=== PATIENT | female | born 1995 | race Caucasian/White ===

== ENCOUNTER 2017-10-26 00:32 | Emergency (ER) | payer BC ==
[2017-10-26] MEDS ORDERED: KETOROLAC TROMETHAMINE 60 MG/2 ML SDV ONE (00:59)
[2017-10-26] MEDS ORDERED: ONDANSETRON 4 MG TAB.RAPDIS ONE (01:10)
[2017-10-26] MEDS ORDERED: KETOROLAC TROMETHAMINE INJ/PF 30 MG/1 ML SDV IM ONE (01:14)
[2017-10-26] MEDS ORDERED: ONDANSETRON 4 MG TAB.RAPDIS PO ONE (01:14)
[2017-10-26] MEDS ORDERED: MORPHINE SULFATE 10 MG/ML INJ IV ONE (02:06)
--- NOTE | 2017-10-26 02:08 | ER Document Report ---
ED GI/ - General Chief Complaint: Flank Pain Stated Complaint: FLANK PAIN Time Seen by Provider: 10/26/17 01:59 Notes: Patient is a 22-year-old female comes emergency department for chief complaint of sharp pain radiating around to her left flank area and several episodes of vomiting. Symptoms started suddenly at 11 PM. She has never had kidney stones before. She denies trauma, fever, she is having normal bowel movements. She denies any daily medications or surgeries. LMP last month. Father at bedside. TRAVEL OUTSIDE OF THE [place] IN LAST 30 DAYS: No Past Medical History - General Information source: Patient - Social History Smoking Status: Never Smoker Frequency of alcohol use: None Drug Abuse: None Lives with: Family Family History: Reviewed & Not Pertinent - Medical History Medical History: Negative Surgical Hx: Negative - Immunizations Immunizations up to date: Yes Hx Diphtheria, Pertussis, Tetanus Vaccination: Yes Review of Systems - Review of Systems Constitutional: No symptoms reported EENT: No symptoms reported Cardiovascular: No symptoms reported Respiratory: No symptoms reported Gastrointestinal: See HPI Genitourinary: See HPI Female Genitourinary: No symptoms reported Musculoskeletal: No symptoms reported Skin: No symptoms reported Hematologic/Lymphatic: No symptoms reported Neurological/Psychological: No symptoms reported Physical Exam - Vital signs Vitals: Temp Pulse Resp BP Pulse Ox 97.5 F 91 20 101/79 96 10/26/17 00:59 10/26/17 00:59 10/26/17 00:59 10/26/17 00:59 10/26/17 00:59 Interpretation: Normal - General General appearance: Alert, Anxious In distress: Mild - HEENT Head: Normocephalic, Atraumatic Eyes: Normal Conjunctiva: Normal Extraocular movements intact: Yes Eyelashes: Normal Pupils: PERRL Nasal: Normal Mouth/Lips: Normal Mucous membranes: Normal Pharynx: Normal Neck: Normal - Respiratory Respiratory status: No respiratory distress Chest status: Nontender Breath sounds: Normal. No: Decreased air movement, Wheezing Chest palpation: Normal - Cardiovascular Rhythm: Regular. No: Tachycardia Heart sounds: Normal auscultation, S1 appreciated, S2 appreciated Murmur: No - Abdominal Inspection: Normal Distension: No distension Bowel sounds: Normal Tenderness: Tender - there is general non-specific left abdominal tenderness without guarding, remaining abdomen is nontender - Back Back: Tender - There is noted left CVA tenderness, right side is unremarkable. No: Vertebra tenderness - Extremities General upper extremity: Normal inspection, Nontender, Normal strength, Normal temperature General lower extremity: Normal inspection, Nontender, Normal strength, Normal temperature - Neurological Neuro grossly intact: Yes Cognition: Normal Orientation: AAOx4 [place] Coma Scale Eye Opening: Spontaneous [place] Coma Scale Verbal: Oriented [place] Coma Scale Motor: Obeys Commands Yandy Coma Scale Total: 15 Speech: Normal Motor strength normal: LUE, RUE, LLE, RLE Sensory: Normal - Psychological Associated symptoms: Anxious - Skin Skin Temperature: Warm Skin Moisture: Dry Skin Color: Normal Course - Re-evaluation Re-evalutation: Patient in obvious discomfort on initial evaluation, after Toradol, morphine, IV fluids, Zofran she is much improved. Patient did have recurrence of pain once, she was given additional medications but afterwards did not have recurrence and continued to be well-appearing. CBC shows marked leukocytosis at 22,000, this is nonspecific with patient being in pain and vomiting. Urinalysis shows a few white blood cells and trace leukocyte esterase without bacteria or nitrates. Culture placed. Renal functioning is unremarkable. Patient afebrile, normal vital signs. CAT scan showing 5 mm left distal ureteral stone with obstruction and hydronephrosis. No other acute abnormality Discussed with patient and father. Patient continues to be well-appearing, patient will be placed on symptom management, given urology referral, strict return precautions. Discussed this in detail with patient and father. They state understanding and agreement. - Vital Signs Vital signs: Temp Pulse Resp BP Pulse Ox 97.8 F 90 17 129/73 H 100 10/26/17 04:36 10/26/17 04:36 10/26/17 04:36 10/26/17 04:36 10/26/17 04:36 - Laboratory Result Diagrams: 10/26/17 01:55 10/26/17 01:55 Laboratory results interpreted by me: 10/26/17 10/26/17 10/26/17 01:55 01:55 02:30 WBC 22.9 H Seg Neuts % (Manual) 91 H Band Neutrophils % 1 L Lymphocytes % (Manual) 8 L Monocytes % (Manual) 0 L Abs Neuts (Manual) 21.1 H Abs Monocytes (Manual) 0.0 L Sodium 145.1 H BUN 21 H Glucose 153 H Albumin 5.1 H Urine Ketones TRACE H Urine Blood MODERATE H Ur Leukocyte Esterase SMALL H Discharge - Discharge Clinical Impression: Flank pain, Ureterolithiasis Vomiting Qualifiers: Vomiting type: unspecified Vomiting Intractability: non-intractable Nausea presence: with nausea Qualified Code(s): R11.2 - Nausea with vomiting, unspecified Condition: Stable Disposition: HOME, SELF-CARE Additional Instructions: You are passing a 5 mm kidney stone on the left side. Take the pain medication as prescribed, you can take your ibuprofen with it, take nausea medicine if needed, drink plenty of fluids. Call tomorrow to set up your follow-up with urology. Return to the emergency department if you worsen in anyway including uncontrolled vomiting, fever, worsening pain, or any other concerning symptoms. [facility] Urologist in [place], [place] Address: [address] [place] [id number] [facility] Medical clinic in [place], [place] Address: [facility] [address] [place] [id number] Prescriptions: Morphine Sulfate [Morphine Ir 15 Mg Tablet] 15 mg PO Q4HP PRN #20 tablet PRN Reason: Ondansetron [Zofran Odt 4 mg Tablet] 1 - 2 tab PO Q4H PRN #20 tab.rapdis PRN Reason: For Nausea/Vomiting Forms: Return to Work
[2017-10-26 02:41] LABS: ALANINE AMINOTRANSFERASE 24 U/L (9-52); ALBUMIN 5.1 g/dL (3.5-5.0); ALKALINE PHOSPHATASE 76 U/L (38-126); ANION GAP 17 (5-19); ASPARTATE AMINO TRANSFERASE 21 U/L (14-36); BILIRUBIN,DIRECT 0.3 mg/dL (0.0-0.4); BILIRUBIN,TOTAL 0.6 mg/dL (0.2-1.3); BLOOD UREA NITROGEN 21 mg/dL (7-20); CALCIUM 9.9 mg/dL (8.4-10.2); CARBON DIOXIDE 23 mmol/L (22-30); CHLORIDE 105 mmol/L (98-107); CREATININE RESULT 0.85 mg/dL (0.52-1.25); GLUCOSE 153 mg/dL (75-110); POTASSIUM 4.5 mmol/L (3.6-5.0); SODIUM 145.1 mmol/L (137-145); TOTAL PROTEIN 7.8 g/dL (6.3-8.2)
[2017-10-26 02:50] LABS: HEMATOCRIT 41.8 % (36.0-47.0); HEMOGLOBIN 14.3 g/dL (12.0-15.5); HGB HCT DIFFERENCE 1.1; MEAN CORPUSCULAR HEMOGLOBIN 29.1 pg (27.0-33.4); MEAN CORPUSCULAR HGB CONC 34.2 g/dL (32.0-36.0); MEAN CORPUSCULAR VOLUME 85 fl (80-97); RED BLOOD COUNT 4.91 10^6/uL (3.72-5.28); RED CELL DISTRIBUTION WIDTH 12.6 % (11.5-14.0); WHITE BLOOD COUNT 22.9 10^3/uL (4.0-10.5)
[2017-10-26 02:53] LABS: BAND NEUTROPHILS % (MANUAL) 1 % (3-5); BASOPHILS % (MANUAL) 0 % (0-2); EOSINOPHILS % (MANUAL) 0 % (0-6); LYMPHOCYTES % (MANUAL) 8 % (13-45); OVALOCYTES SLIGHT; POIKILOCYTOSIS SLIGHT; TEAR DROP CELLS SLIGHT; TOTAL CELLS COUNTED 100; TOXIC GRANULATION SLIGHT
[2017-10-26 03:06] LABS: APPEARANCE,URINE SLIGHTLY-CLOUDY; BILIRUBIN,URINE NEGATIVE (NEGATIVE); GLUCOSE, URINE NEGATIVE (NEGATIVE); KETONES,URINE TRACE mg/dL (NEGATIVE); LEUKOCYTE ESTERASE,URINE SMALL (NEGATIVE); NITRITE,URINE NEGATIVE (NEGATIVE); PROTEIN,URINE NEGATIVE (NEGATIVE); URINE SPECIFIC GRAVITY 1.029; UROBILINOGEN,URINE NEGATIVE mg/dL (<2.0)
[2017-10-26 03:13] LABS: BACTERIA,URINE TRACE /HPF
[2017-10-26] MEDS ORDERED: ONDANSETRON HCL INJ/PF 4 MG/2 ML SDV IV ONE (03:32)
[2017-10-26] MEDS ORDERED: HYDROMORPHONE HCL INJ/PF 2 MG/ML AMPULE IV ONE (03:32)
[2017-10-26] MEDS ORDERED: DIPHENHYDRAMINE HCL 50 MG/ML VIAL IV ONE (03:32)
--- NOTE | 2017-10-26 03:50 | RADIOLOGY REPORT (SQ) ---
EXAM DESCRIPTION: CT LTD RENAL STONE PROTOCOL ON CLINICAL HISTORY: 22 years Female, left flank pain, vomiting COMPARISON: None. TECHNIQUE: This exam was performed according to our departmental dose-optimization program, which includes automated exposure control, adjustment of the mA and/or kV according to patient size and/or use of iterative reconstruction technique. No contrast, coronal and sagittal reformat, 434 DLP, dose reduction. FINDINGS: 0.5 cm left distal ureteral stone within 2 cm of the left ureterovesicular junction with mild left hydronephrosis and moderate left hydroureter. IUD appears adequate. Unenhanced inferior chest and intra-abdominal/pelvic structures including the appendix and gallbladder appear unremarkable. Lymphatics and vasculature appear within normal limits. Mild desiccated posterior L5-S1 disc height loss. Otherwise intact bony structures. IMPRESSION: 1. A 0.5 cm left distal ureteral stone with low-grade obstruction. 2. IUD.
[2017-10-26 04:40] VITALS: BP 129/73
== END 2017-10-26 04:40 | disposition home or self-care (01) ==
LOC: EDBD → ER 00:32
DX: N20.1 Calculus of ureter (principal); R10.9 Unspecified abdominal pain; R11.2 Nausea with vomiting, unspecified
CPT/HCPCS: 96376; 99284; 96372; 96374; 96375; 36415; 87086; 84703; 85025; 87088; 80053; 81001; 87186; 76380; J1200; S0119; J1885; J2270; J1170; J2405

== ENCOUNTER 2017-10-27 21:53 | Emergency (ER) | payer BC ==
[2017-10-27] MEDS ORDERED: ACETAMINOPHEN 325 MG TABLET PO ONE (21:59)
[2017-10-27] MEDS ORDERED: ONDANSETRON HCL INJ/PF 4 MG/2 ML SDV IV ONE (22:18)
[2017-10-27] MEDS ORDERED: HYDROMORPHONE HCL INJ/PF 2 MG/ML AMPULE IV ONE (22:18)
[2017-10-27] MEDS ORDERED: NORMAL SALINE 1000 ML 1,000 ML IV ONE ×2 (22:18)
[2017-10-27] MEDS ORDERED: CEFTRIAXONE 1 GM/D5W RTU 1 GM/50 ML RTUPB IV ONE (22:21)
--- NOTE | 2017-10-27 22:23 | ER Document Report ---
ED GI/ - General Chief Complaint: Vomiting Stated Complaint: VOMITING Time Seen by Provider: 10/27/17 22:10 Notes: Patient is a 22-year-old female comes emergency department for chief complaint of vomiting, flank pain, and fever. She was seen yesterday by me, diagnosed with a left-sided kidney stone, she states that she started having a fever in the morning, went to an urgent care, she states she was sent home at that time. She states that she worsened and so she came in tonight. She states she has vomited several times today. She denies any other new symptoms. TRAVEL OUTSIDE OF THE [place] IN LAST 30 DAYS: No - Related Data Allergies/Adverse Reactions: Penicillins Allergy (Verified 10/27/17 21:53) Past Medical History - General Information source: Patient - Social History Smoking Status: Never Smoker Frequency of alcohol use: None Drug Abuse: None Lives with: Family Family History: Reviewed & Not Pertinent Renal/ Medical History: Reports: Hx Kidney Stones. Denies: Hx Peritoneal Dialysis - Immunizations Immunizations up to date: Yes Hx Diphtheria, Pertussis, Tetanus Vaccination: Yes Review of Systems - Review of Systems Constitutional: See HPI EENT: No symptoms reported Cardiovascular: No symptoms reported Respiratory: No symptoms reported Gastrointestinal: See HPI Genitourinary: No symptoms reported Female Genitourinary: No symptoms reported Musculoskeletal: No symptoms reported Skin: No symptoms reported Hematologic/Lymphatic: No symptoms reported Neurological/Psychological: No symptoms reported Physical Exam - Vital signs Vitals: Temp Pulse Resp BP Pulse Ox 103.1 F H 139 H 20 127/74 H 98 10/27/17 21:59 10/27/17 21:59 10/27/17 21:59 10/27/17 21:59 10/27/17 21:59 Interpretation: Normal - General General appearance: Alert In distress: Mild - Patient alert, appears mildly uncomfortable, does not appear to be in severe distress - HEENT Head: Normocephalic, Atraumatic Eyes: Normal Pupils: PERRL - Respiratory Respiratory status: No respiratory distress Chest status: Nontender Breath sounds: Normal Chest palpation: Normal - Cardiovascular Rhythm: Regular, Tachycardia Heart sounds: Normal auscultation, S1 appreciated, S2 appreciated Murmur: No - Abdominal Inspection: Normal Distension: No distension Bowel sounds: Normal Tenderness: Tender - Tender in the left general abdomen, right abdomen is unremarkable Organomegaly: No organomegaly - Back Back: CVA tenderness - Left. No: Vertebra tenderness - Extremities General upper extremity: Normal inspection, Nontender, Normal color, Normal ROM , Normal temperature General lower extremity: Normal inspection, Nontender, Normal color, Normal ROM , Normal temperature, Normal weight bearing. No: Humera's sign - Neurological Neuro grossly intact: Yes Cognition: Normal Orientation: AAOx4 [place] Coma Scale Eye Opening: Spontaneous [place] Coma Scale Verbal: Oriented Yandy Coma Scale Motor: Obeys Commands Yandy Coma Scale Total: 15 Speech: Normal Motor strength normal: LUE, RUE, LLE, RLE Sensory: Normal - Psychological Associated symptoms: Normal affect, Normal mood - Skin Skin Temperature: Warm Skin Moisture: Dry Skin Color: Flushed Course - Re-evaluation Re-evalutation: Patient had a CT of the abdomen/pelvis without contrast yesterday showing a left distal ureter 5 mm stone with low-grade hydronephrosis. Urine culture from yesterday shows gram-negative rods. Patient is febrile, tachycardic, however she is actually alert, talkative, and does not appear toxic. She is not hypotensive. Starting antibiotics, fluids, getting labs, patient will need admission for urology. We do not have a urologist senior applications architect either today or in the next few days. Will call [facility]. Discussed this with patient and father. 10/28/17 Leukocytosis at 18,000 with 7% bands, lactic acid is not elevated, patient is not hypotensive. Urinalysis shows 3+ bacteria, white blood cells, no nitrites. Creatinine slightly elevated at 1.3 which is changed compared to prior. Given IV fluids. 10/28/17 00:00 Spoke with [facility], they are at maximum capacity. Spoke with Lisseth Oswald, Dr. Phoneix (internal medicine), they do not have available beds and have a long waiting list. Placed on waiting list. Spoke with [facility], they are at maximum capacity at this time. Called [facility] back to place on waiting list. 10/28/17 00:45 Spoke with urologist on-call, Dr. Klein at [facility]. He accepts patient, patient will be transferred to the emergency department with plans to take her to the operating room after that. I discussed this with patient, she is very agreeable with this plan. 10/28/17 01:00 Patient still mildly tachycardic at 105-110, blood pressure unchanged from prior , no significant change from prior. 10/28/17 02:55 Transport team is here. Alert and well appearing. Patient complains of itching, she was given Dilaudid earlier, she does not have a rash, clear airway, no other complaints. She was given 12.5 mg of Benadryl IV. She was kept NPO. Stable for transport. - Vital Signs Vital signs: Temp Pulse Resp BP Pulse Ox 99.1 F 139 H 23 H 100/62 94 10/27/17 23:25 10/27/17 21:59 10/28/17 02:23 10/28/17 02:23 10/28/17 02:23 - Laboratory Result Diagrams: 10/27/17 23:00 10/27/17 23:00 Laboratory results interpreted by me: 10/27/17 10/27/17 10/27/17 23:00 23:00 23:00 WBC 18.3 H Hct 33.6 L Plt Count 110 L Seg Neuts % (Manual) 91 H Band Neutrophils % 7 H Lymphocytes % (Manual) 0 L Monocytes % (Manual) 2 L Abs Neuts (Manual) 17.9 H Abs Lymphs (Manual) 0.0 L Sodium 130.1 L Potassium 3.5 L Chloride 95 L Creatinine 1.38 H Est GFR ( Amer) 57 L Est GFR (Non-Af Amer) 47 L Alkaline Phosphatase 130 H Total Protein 5.6 L Albumin 3.3 L Urine Protein 100 H Urine Blood LARGE H Discharge - Discharge Clinical Impression: Ureterolithiasis, Tachycardia Fever Qualifiers: Fever type: unspecified Qualified Code(s): R50.9 - Fever, unspecified Urinary tract infection Qualifiers: Urinary tract infection type: site unspecified Hematuria presence: with hematuria Qualified Code(s): N39.0 - Urinary tract infection, site not specified Condition: Fair Disposition: [facility]
[2017-10-27 23:26] LABS: HEMATOCRIT 33.6 % (36.0-47.0); HGB HCT DIFFERENCE 2.4; MEAN CORPUSCULAR HEMOGLOBIN 29.2 pg (27.0-33.4); MEAN CORPUSCULAR HGB CONC 35.7 g/dL (32.0-36.0); MEAN CORPUSCULAR VOLUME 82 fl (80-97); RED CELL DISTRIBUTION WIDTH 12.5 % (11.5-14.0); WHITE BLOOD COUNT 18.3 10^3/uL (4.0-10.5)
[2017-10-27 23:28] LABS: ALANINE AMINOTRANSFERASE 34 U/L (9-52); ALBUMIN 3.3 g/dL (3.5-5.0); ALKALINE PHOSPHATASE 130 U/L (38-126); ANION GAP 12 (5-19); ASPARTATE AMINO TRANSFERASE 22 U/L (14-36); BILIRUBIN,DIRECT 0.4 mg/dL (0.0-0.4); BILIRUBIN,TOTAL 0.8 mg/dL (0.2-1.3); BLOOD UREA NITROGEN 19 mg/dL (7-20); CALCIUM 8.5 mg/dL (8.4-10.2); CARBON DIOXIDE 23 mmol/L (22-30); CHLORIDE 95 mmol/L (98-107); CREATININE RESULT 1.38 mg/dL (0.52-1.25); GLUCOSE 108 mg/dL (75-110); POTASSIUM 3.5 mmol/L (3.6-5.0); SODIUM 130.1 mmol/L (137-145); TOTAL PROTEIN 5.6 g/dL (6.3-8.2)
[2017-10-27 23:31] LABS: APPEARANCE,URINE CLOUDY; BILIRUBIN,URINE NEGATIVE (NEGATIVE); GLUCOSE, URINE NEGATIVE (NEGATIVE); KETONES,URINE NEGATIVE (NEGATIVE); LEUKOCYTE ESTERASE,URINE NEGATIVE (NEGATIVE); NITRITE,URINE NEGATIVE (NEGATIVE); PROTEIN,URINE 100 mg/dL (NEGATIVE); URINE SPECIFIC GRAVITY 1.021; UROBILINOGEN,URINE NEGATIVE mg/dL (<2.0)
[2017-10-27 23:54] LABS: BAND NEUTROPHILS % (MANUAL) 7 % (3-5); BASOPHILS % (MANUAL) 0 % (0-2); EOSINOPHILS % (MANUAL) 0 % (0-6); LYMPHOCYTES % (MANUAL) 0 % (13-45); TOTAL CELLS COUNTED 100
[2017-10-27 23:55] LABS: RBC MORPHOLOGY COMMENT NORMO-CYTIC/CHROMIC; TOXIC VACUOLATION PRESENT
[2017-10-28] MEDS ORDERED: DIPHENHYDRAMINE HCL 25 MG/10 ML UDC PO ONE (02:10)
[2017-10-28 02:20] VITALS: BP 100/62
== END 2017-10-28 02:40 | disposition short-term general hospital (02) ==
LOC: ER 21:53
DX: N20.1 Calculus of ureter (principal); N39.0 Urinary tract infection, site not specified; R00.0 Tachycardia, unspecified; R50.9 Fever, unspecified; R10.9 Unspecified abdominal pain; R11.10 Vomiting, unspecified
CPT/HCPCS: 99285; 96361; 96375; 96365; 36415; 87040; 84703; 85025; 87077; 80053; 81001; 87186; 83605; J3490; J1170; J2405; J7030 ×2; J0696